=== PATIENT | female | born 1945 | race Two or more races ===

== ENCOUNTER → 2016-08-25 | Day surgery (SDC) | payer MEDICARE, MEDICAID ==
[2016-08-25] VITALS (10 sets, daily range): BP systolic 76–149; BP diastolic 65–92
[~2016-08-25] VITALS: Ht 157.5 cm; Wt 64.4 kg
[~2016-08-25] MED LIST: ALOE VERA25 MG PO; BUSPAR10 MG ORAL; BYSTOLIC2.5 MG ORAL; LIPITOR40 MG ORAL; LR 1000ml ONE; Lidocaine 1% MPF 10mg/ml 5ml ONE; NORVASC5 MG ORAL; Propofol 10mg/ml 20ml IV ONE; VASOTEC20 MG ORAL
--- NOTE | 2016-08-25 09:19 | Short Stay Surgery H&P ---
History of Present Illness History of Present Illness Chief Complaint Heartburn and constipation HPI Nori Baxter is a 70 year old female who was admitted on for Gerd, Colon Polyps Patient History Allergies: Coded Allergies: CAFFEINE (Verified Adverse Reaction, Intermediate, Dizziness, 08/25/16) PAST MEDICAL HISTORY: (1) Hypertension (2) Anxiety Past Surgeries: Social History: Medication History Scheduled Aloe Vera (Aloe Vera), 25 MG PO DAILY, (Reported) Amlodipine Besylate (Norvasc), 5 MG ORAL DAILY, (Reported) Atorvastatin Calcium* (Lipitor*), 40 MG ORAL BEDTIME, (Reported) Buspirone Hcl* (Buspar*), 15 MG ORAL BID, (Reported) Enalapril Maleate* (Vasotec*), 20 MG ORAL EVERY 12 HOURS, (Reported) Nebivolol Hcl* (Bystolic*), 5 MG ORAL DAILY, (Reported) Review of Systems Cardiovascular: Reports: hypertension Respiratory: Reports: no symptoms Skeletal: Reports: no symptoms Gastrointestinal: Reports: gastro esophageal reflux disease Neurologic: Reports: no symptoms Endocrine: Reports: no symptoms Hematologic: Reports: no symptoms Physical Exam Vital Signs Last Vital Signs Date Time Temp Pulse Resp B/P Pulse Ox O2 Delivery O2 Flow Rate FiO2 08/25/16 08:35 97.2 70 18 149/81 95 Room Air Skin: normal HENT: normal Heart: normal Abdomen: abnormal Extremities: normal Genitourinary: normal Plan Plan of Care Upper and lower GI endoscopy Preop Interventions None. Summary of Findings See the reports Final Diagnosis: Attestation Are the patient's medical conditions optimized for surgery? Attestation Response: yes FERNANDO HALL Aug 25, 2016 09:19
--- NOTE | 2016-08-25 09:20 | Pre-Procedure Note/Attestation ---
Pre-Procedure Note/Attestation Complete Prior to Procedure Planned Procedure: left Procedure Narrative: The endoscopic examination of the upper and the lower GI tract. Indications for Procedure Pre-Operative Diagnosis: R/O eptic ulcer and colon polyp/tumor. Attestation I attest that I discussed the nature of the procedure; its benefits; risks and complications; and alternatives (and the risks and benefits of such alternatives ), prior to the procedure, with the patient (or the patient's legal territory service representative). I attest that, if there was a reasonable possibility of needing a blood transfusion, the patient (or the patient's legal territory service representative) was given the [facility] standardized written summary, pursuant to the Anurag Leonel Blood Safety Act ([place] Health and Safety Code # 1645, as amended). I attest that I re-evaluated the patient just prior to the surgery and that there has been no change in the patient's H&P, except as documented below: RAFAELSAID Aug 25, 2016 09:20
--- NOTE | 2016-08-25 09:56 | Endoscopy Procedure Note ---
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 Specimen: yes Pt Tolerated Procedure Well: Yes Estimated Blood Loss: none Anesthesiologist: Dr. Villa Anesthesia: moderate sedation Medication Given: see anesthesia record Implant(s) used?: No 50 yrs or older w/o bx or poly: Yes If not recommended, why?: 10 yrs. F/U needed: Yes Med reason:<3 yrs.: System Reason:<3 yrs.: FERNANDO HALL Aug 25, 2016 09:56
--- NOTE | 2016-08-25 09:57 | Anethesia Preoperative Eval ---
Anesthesia Pre-op PMH/ROS General Date of Evaluation: Aug 25, 2016 Time of Evaluation: 09:15 Anesthesiologist: kathie ASA Score: ASA 2 Mallampati Score Class I : Soft palate, uvula, fauces, pillars visible Class II: Soft palate, uvula, fauces visible Class III: Soft palate, base of uvula visible Class IV: Only hard plate visible Mallampati Classification: Class II Surgeon: haydee Diagnosis: consitpation/gerd Surgical Procedure: edg/colonoscopy Anesthesia History: none Family History: no anesthesia problems Allergies: Coded Allergies: CAFFEINE (Verified Adverse Reaction, Intermediate, Dizziness, 08/25/16) Medications: see eMAR Past Medical History Cardiovascular: Denies: CAD, HTN, MO, arrhythmia, other, valve dz Pulmonary: Denies: COPD, YOU, asthma, other Gastrointestinal/Genitourinary: Reports: GERD Neurologic/Psychiatric: Denies: CVA, TIA, dementia, depression/anxiety, other Endocrine: Denies: DM, hypothyroidism, other, steroids Hematology/Immune: Denies: DVT, anemia, bleeding disorder, other Musculoskeletal/Integumentary: Denies: DDD, DJD, OA, RA, edema, other Other: obesity Anesthesia Pre-op Phys. Exam Physician Exam Last Vital Signs Date Time Temp Pulse Resp B/P Pulse Ox O2 Delivery O2 Flow Rate FiO2 08/25/16 08:35 97.2 70 18 149/81 95 Room Air Constitutional: NAD Neurologic: CN 2-12 intact Cardiovascular: RRR Respiratory: CTA Gastrointestinal: S/NT/ND Airway Exam Mallampati Score: Class II MO: full ROM: full Dentures: no lower, no upper Anesthesia Pre-op A/P Risk Assessment & Plan Plan: mac Status Change Before Surgery: No Pre-Antibiotics Drug: none SHERICE DAVIS RETORT ENGINEER Aug 25, 2016 09:57
--- NOTE | 2016-08-25 09:57 | Discharge Instructions ---
Discharge Instructions Discharge Instructions Follow up with: see the docotor after 2 weeks in the office For Congestive Heart Failure Reminder Report to your physician any weight gain of 5 pounds or more in one week. FERNANDO HALL Aug 25, 2016 09:57
--- NOTE | 2016-08-25 10:06 | Immediate Post-Op Evaluation ---
Immediate Post-Op Evalulation Immediate Post-Op Evalulation Procedure: egd/colonoscopy Date of Evaluation: Aug 25, 2016 Time of Evaluation: 10:00 IV Fluids: 300 Blood Pressure Systolic: 124 Blood Pressure Diastolic: 67 Pulse Rate: 78 Respiratory Rate: 14 O2 Sat by Pulse Oximetry: 97 Temperature (Fahrenheit): 97.2 Nausea: No Vomiting: No Patient Status: awake, reacts, patent Hydration Status: adequate Drug: none SHERICE DAVIS CRNA Aug 25, 2016 10:06
--- NOTE | 2016-08-25 10:09 | 48 Hour Post Anesthesia Eval ---
Post Anesthesia Evaluation Procedure: egd/colonoscopy Date of Evaluation: Aug 25, 2016 Time of Evaluation: 10:08 Blood Pressure Systolic: 126 0: 76 Pulse Rate: 75 Respiratory Rate: 14 O2 Sat by Pulse Oximetry: 97 Airway: patent Nausea: No Vomiting: No Hydration Status: adequate Mental Status/LOC: patient returned to baseline Post-Anesthesia Complications: none Follow-up care needed: N/A SHERICE DAVIS CRNA Aug 25, 2016 10:09
--- NOTE | 2016-08-25 16:18 | Operative Note - Dictated ---
DATE OF OPERATION: 08/25/2016 SURGEON: Ray Quintana M.D. PROCEDURE PERFORMED: Esophagogastroduodenoscopy with biopsy. PREOPERATIVE DIAGNOSES: 1. Abdominal pain. 2. History of gastroesophageal reflux. 3. Gastroesophageal reflux disease. POSTOPERATIVE DIAGNOSIS: Moderate gastritis of the antrum, biopsied, otherwise normal study. MEDICATION USED: Per Dr. Kaufman, anesthesiologist. INSTRUMENT: GIF Olympus upper GI video endoscope. DESCRIPTION OF PROCEDURE: The patient, after arriving in the endoscopy unit, was told about risks and benefits of the procedure, which she accepted and signed the informed consent. She was then put in the left lateral decubitus position. After adequate IV sedation, the scope was gently passed through the cricopharyngeal area, was lodged into the upper esophagus, and gradually advanced towards gastroesophageal junction. The entire length of the esophagus looked normal. No evidence of varices, inflammatory process, ulceration, etc., was found. GE junction also looked normal without hiatal hernia or Young's. At this time, the scope was advanced into the stomach. Gastric cavity was distended with insufflation of air. Gradually, the areas of the fundus and the body and the antrum were examined, which revealed evidence of moderate inflammatory process with significant erythema and edema of the posterior wall of the antral area, particularly in the upper part. Multiple biopsies from this area were obtained. Subsequently, the scope was passed through normal looking pylorus. First and second portions of duodenum were found to be completely normal. At this time, the scope was pulled out and the procedure was terminated. The patient tolerated the procedure well. Ray Quintana M.D. DR: JOVANY JOB#: [id number] CC:
--- NOTE | 2016-08-25 16:38 | Operative Note - Dictated ---
DATE OF OPERATION: 08/25/2016 SURGEON: Ray Quintana M.D. PROCEDURE PERFORMED: Total colonoscopy. PREOPERATIVE DIAGNOSIS: Severe constipation. POSTOPERATIVE DIAGNOSIS: Severe melanosis of total colon with minimal internal hemorrhoids, otherwise, total normal colonoscopy. MEDICATION USED: Per Dr. Alexandra, anesthesiologist. INSTRUMENT: GIF Olympus videocolonoscope. DESCRIPTION OF PROCEDURE: The patient, after arriving in the endoscopy unit, was told about risks and benefits of the procedure, which she accepted and signed the informed consent. At this time, she was put on the left lateral decubitus position. After adequate IV sedation, the scope was gently passed through the anal area, which revealed evidence of hemorrhoidal tag with minimal internal hemorrhoids inside. The rest of the rectum looked significantly covered with the pigments, which was consistent with severe melanosis coli consistent with the patient's laxative abuse, which is consistent with her chronic constipation. At this time, the scope was gradually passed through highly redundant left colon, gradually reaching towards the splenic flexure, transverse colon, hepatic flexure, and finally was guided into the right colon all the way to the base of the cecum. All the length of colon revealed the same condition of significant pigmentation and melanosis coli. Otherwise, there were no polyps, tumors, ulcers, stricture, etc. Finally, after reaching to the base of the cecum within 7 minutes, the scope was gradually pulled out and no other pathology found. The colon cleanup was adequate. The patient tolerated the procedure well and left the endoscopy room in a good condition. Ray Quintana M.D. DR: JOVANY JOB#: [id number] CC:
== END | disposition home or self-care (01) ==
LOC: GAS 07:59
DX: K29.70 Gastritis, unspecified, without bleeding (principal); K31.9 Disease of stomach and duodenum, unspecified; K21.9 Gastro-esophageal reflux disease without esophagitis; R12 Heartburn; K59.00 Constipation, unspecified; K63.89 Other specified diseases of intestine; K64.8 Other hemorrhoids; Z86.010 Personal history of colon polyps; I10 Essential (primary) hypertension; F41.9 Anxiety disorder, unspecified; Z91.048 Other nonmedicinal substance allergy status
CPT/HCPCS: 43239; 45378; J2704; J7120; 94003; 94150